=== PATIENT | male | born 1940 | race Caucasian/White ===

== ENCOUNTER 2023-09-01 09:29 | Inpatient (IN) | payer BC, OTHER ==
[2023-09-01 11:21] LABS: BASO % 0.8 % (0-2.0); EOS % 4.6 % (0-4.5); HEMATOCRIT 33.3 % (35.4-49); HEMOGLOBIN 11.6 GM/dL (11.7-16.9); LYMPH % 12.7 % (8-40); MCH 30.1 pg (25.7-33.7); MCHC 34.7 g/dl (32.0-35.9); MEAN CELL VOLUME 86.8 fl (80-96); MEAN PLT VOLUME 7.1 fl (7.5-11.1); MONO % 7.9 % (3.8-10.2); PLATELET COUNT 190 10^3/uL (134-434); RBC 3.84 M/mm3 (4.00-5.60); RDW 16.4 % (11.9-15.9); WHITE BLOOD COUNT 7.6 K/mm3 (4.0-10.0)
[2023-09-01 11:23] LABS: INR 0.97 (0.83-1.09)
[2023-09-01 11:26] LABS: ACTIVATED PTT 24.5 SECONDS (25.2-36.5)
[2023-09-01 11:39] LABS: PH,URINE 5.5 (5.0-8.0); URINE APPEARANCE CLEAR; URINE BILIRUBIN NEGATIVE (NEGATIVE); URINE COLOR YELLOW; URINE GLUCOSE (UA) NEGATIVE (NEGATIVE); URINE KETONE TRACE (NEGATIVE); URINE LEUK ESTERASE NEGATIVE (NEGATIVE); URINE NITRITE NEGATIVE (NEGATIVE); URINE PROTEIN NEGATIVE (NEGATIVE); URINE UROBILINOGEN 0.2 mg/dL (0.2-1.0)
[2023-09-01 11:43] LABS: POTASSIUM 4.3 mmol/L (3.5-5.1)
[2023-09-01 11:45] LABS: CALCIUM 8.7 mg/dL (8.5-10.1); MAGNESIUM 2.1 mg/dL (1.8-2.4)
[2023-09-01 11:46] LABS: BLOOD UREA NITROGEN 25.6 mg/dL (7-18)
[2023-09-01 11:48] LABS: CREATININE 0.9 mg/dL (0.55-1.3)
[2023-09-01 11:50] LABS: BILIRUBIN,TOTAL 0.4 mg/dL (0.2-1)
[2023-09-01] MEDS ORDERED: HALOPERIDOL LACTATE 5 MG/ML ONE (14:21)
[2023-09-01] MEDS: HALOPERIDOL LACTATE 5 MG/ML IM ONE ×2 (14:46→23:06)
[2023-09-01 16:39] VITALS: BMI 22.8
[2023-09-02 08:32] LABS: BASO % 0.5 % (0-2.0); EOS % 3.8 % (0-4.5); HEMOGLOBIN 12.5 GM/dL (11.7-16.9); LYMPH % 12.1 % (8-40); MCH 29.8 pg (25.7-33.7); MCHC 34.7 g/dl (32.0-35.9); MEAN CELL VOLUME 85.9 fl (80-96); MEAN PLT VOLUME 7.1 fl (7.5-11.1); MONO % 7.3 % (3.8-10.2); NEUT % 76.3 % (42.8-82.8); PLATELET COUNT 221 10^3/uL (134-434); RBC 4.19 M/mm3 (4.00-5.60); RDW 15.9 % (11.9-15.9); WHITE BLOOD COUNT 7.2 K/mm3 (4.0-10.0)
[2023-09-02 08:50] LABS: POTASSIUM 3.7 mmol/L (3.5-5.1)
[2023-09-02 08:56] LABS: CALCIUM 8.8 mg/dL (8.5-10.1)
[2023-09-02 08:57] LABS: ALBUMIN 3.2 g/dl (3.4-5.0); BLOOD UREA NITROGEN 20.2 mg/dL (7-18); MAGNESIUM 1.8 mg/dL (1.8-2.4)
[2023-09-02 09:00] LABS: CREATININE 0.8 mg/dL (0.55-1.3); PHOSPHOROUS 3.5 mg/dL (2.5-4.9)
[2023-09-02 09:01] LABS: BILIRUBIN,TOTAL 0.5 mg/dL (0.2-1)
[2023-09-02 09:02] LABS: TOT PROT 6.3 g/dl (6.4-8.2)
[2023-09-02] MEDS: ENOXAPARIN NA (PORCINE) 40 MG/0.4 ML DISP.SYRIN SQ SCH (09:19)
[2023-09-02] MEDS: DIVALPROEX SODIUM 250 MG TABLET E.C. PO SCH ×2 (14:14→17:31)
[2023-09-02] MEDS: risperiDONE 0.25 MG TABLET PO SCH (15:17)
[2023-09-02] MEDS ORDERED: risperiDONE 1 MG TABLET PO SCH (21:00)
[2023-09-02] MEDS: OLANZapine 5 MG TABLET PO SCH (23:02)
[2023-09-03] MEDS: risperiDONE 0.25 MG TABLET PO SCH (08:28)
[2023-09-03] MEDS: DIVALPROEX SODIUM 250 MG TABLET E.C. PO SCH (08:29)
[2023-09-03] MEDS ORDERED: risperiDONE 0.5 MG TABLET PO SCH (09:00)
[2023-09-04 15:59] VITALS: RESP 16
[2023-09-04 22:10] VITALS: BP 102/53; PULSE 74; TEMP 97.6
== END 2023-09-05 12:32 | DRG 884 ==
LOC: JER 09:29 → JERBED 12:26 → J6S 16:08
PROVIDERS: ADMIT Internal Medicine; ATTEND Internal Medicine
DX: F03.911 Unspecified dementia, unspecified severity, with agitation (principal); R94.31 Abnormal electrocardiogram [ECG] [EKG]
CPT/HCPCS: 36415; 70450-TC; 71045-TC-FY; 72125-TC; 73562-TC-LT-FY; 80053; 81003; 82607; 83735; 84100; 84443; 84484; 85025; 85610; 85730; 86780; 87086; 93005; 93010; 93306-TC; 97116-GP; 97161-GP; 99285-25

== ENCOUNTER 2023-09-06 12:52 | Emergency (ER) | payer BC ==
[2023-09-06 13:22] VITALS: RESP 18; BMI 53.4
[2023-09-06] MEDS: LACTATED RINGERS SOLUTION 1000 ML INFUS.BAG IV ONE (14:00)
[2023-09-06 14:04] LABS: VENOUS BASE EXCESS 1.5 mmol/L (-2-2); VENOUS O2 SATURATION 28.6 % (70-80); VENOUS PCO2 45.9 mmHg (38-52); VENOUS PH 7.388 (7.310-7.410)
[2023-09-06 14:06] LABS: BASO % 0.4 % (0-2.0); EOS % 2.8 % (0-4.5); HEMATOCRIT 40.1 % (35.4-49); HEMOGLOBIN 13.8 GM/dL (11.7-16.9); LYMPH % 10.4 % (8-40); MCH 29.9 pg (25.7-33.7); MCHC 34.4 g/dl (32.0-35.9); MEAN CELL VOLUME 86.8 fl (80-96); MEAN PLT VOLUME 7.3 fl (7.5-11.1); MONO % 7.1 % (3.8-10.2); NEUT % 79.3 % (42.8-82.8); PLATELET COUNT 209 10^3/uL (134-434); RBC 4.62 M/mm3 (4.00-5.60); RDW 15.9 % (11.9-15.9); WHITE BLOOD COUNT 10.6 K/mm3 (4.0-10.0)
[2023-09-06 14:10] LABS: INR 1.03 (0.83-1.09); PROTHROMBIN TIME (PATIENT) 11.8 SEC (9.7-13.0)
[2023-09-06 14:26] LABS: POTASSIUM 4.3 mmol/L (3.5-5.1)
[2023-09-06 14:28] LABS: ALBUMIN 3.3 g/dl (3.4-5.0); BLOOD UREA NITROGEN 42.6 mg/dL (7-18); CALCIUM 9.1 mg/dL (8.5-10.1)
[2023-09-06 14:31] LABS: CREATININE 0.9 mg/dL (0.55-1.3)
[2023-09-06 14:33] LABS: BILIRUBIN,TOTAL 0.5 mg/dL (0.2-1)
[2023-09-06 16:02] LABS: EPI CELLS 6 /uL (0-25.1); HYALINE CASTS 0 /uL (0-3.1); PH,URINE 6.5 (5.0-8.0); URINE APPEARANCE CLEAR; URINE BACTERIA 3 /uL (0-1359); URINE BILIRUBIN NEGATIVE (NEGATIVE); URINE COLOR YELLOW; URINE GLUCOSE (UA) NEGATIVE (NEGATIVE); URINE KETONE TRACE (NEGATIVE); URINE LEUK ESTERASE NEGATIVE (NEGATIVE); URINE NITRITE NEGATIVE (NEGATIVE); URINE PROTEIN NEGATIVE (NEGATIVE); URINE RBC 49 /uL (0-23.9); URINE UROBILINOGEN 0.2 mg/dL (0.2-1.0); URINE WBC 5 /uL (0-25.8)
[2023-09-06 16:09] LABS: COCAINE, UR NEGATIVE (NEGATIVE); METHADONE, UR NEGATIVE (NEGATIVE); URINE AMPHETAMINES NEGATIVE (NEGATIVE)
[2023-09-06 16:10] LABS: OPIATES, URI NEGATIVE (NEGATIVE); PHENCYCLIDINE,URINE NEGATIVE (NEGATIVE); URINE BARBITURATES NEGATIVE (NEGATIVE); URINE BENZODIAZEPINES NEGATIVE (NEGATIVE)
[2023-09-06 18:42] VITALS: BP 122/60; PULSE 67; TEMP 98.3
== END 2023-09-06 19:01 ==
LOC: JER 12:52
DX: F03.90 Unspecified dementia, unspecified severity, without behavioral disturbance, psychotic disturbance, mood disturbance, and anxiety (principal); Z20.822 Contact with and (suspected) exposure to COVID-19
CPT/HCPCS: 0241U-QW; 36415; 70450-TC; 71045-TC-FY; 80053; 80307; 81003; 82803; 83605; 83735; 84484; 85025; 85610; 86850; 86900; 86901; 87086; 93005; 93010; 99285-25

== ENCOUNTER 2023-10-18 12:41 | Inpatient (IN) | payer BC, OTHER ==
[2023-10-18] MEDS: SODIUM CHLORIDE 1,000 ML IV SCH (13:50)
[2023-10-18 14:08] LABS: BASO % 0.6 % (0-2.0); EOS % 1.4 % (0-4.5); HEMATOCRIT 37.6 % (35.4-49); HEMOGLOBIN 12.5 GM/dL (11.7-16.9); LYMPH % 15.6 % (8-40); MCH 29.5 pg (25.7-33.7); MCHC 33.3 g/dl (32.0-35.9); MEAN CELL VOLUME 88.8 fl (80-96); MEAN PLT VOLUME 7.3 fl (7.5-11.1); MONO % 7.2 % (3.8-10.2); NEUT % 75.2 % (42.8-82.8); PLATELET COUNT 189 10^3/uL (134-434); RBC 4.23 M/mm3 (4.00-5.60); RDW 15.2 % (11.9-15.9); WHITE BLOOD COUNT 7.1 K/mm3 (4.0-10.0)
[2023-10-18 14:12] LABS: INR 1.01 (0.83-1.09); PROTHROMBIN TIME (PATIENT) 11.4 SEC (9.7-13.0)
[2023-10-18 14:15] LABS: ACTIVATED PTT 27.3 SECONDS (25.2-36.5)
[2023-10-18 14:52] LABS: CHLORIDE 106 mmol/L (98-107); POTASSIUM 4.1 mmol/L (3.5-5.1); SODIUM 143 mmol/L (136-145)
[2023-10-18 14:53] LABS: CALCIUM 8.7 mg/dL (8.5-10.1)
[2023-10-18 14:54] LABS: ALBUMIN 2.4 g/dl (3.4-5.0); ANION GAP 7 mmol/L (4-13); CO2 29 mmol/L (21-32)
[2023-10-18 14:55] LABS: BLOOD UREA NITROGEN 39.3 mg/dL (7-18); GLUCOSE,RANDOM 77 mg/dL (74-106)
[2023-10-18 14:57] LABS: CREATININE 0.8 mg/dL (0.55-1.3); SGOT/AST 61 U/L (15-37); SGPT/ALT 35 U/L (13-61)
[2023-10-18 14:58] LABS: CHOLESTEROL 195 mg/dL (50-200)
[2023-10-18 14:59] LABS: TOT PROT 5.7 g/dl (6.4-8.2)
[2023-10-18 15:00] LABS: BILIRUBIN,TOTAL 0.9 mg/dL (0.2-1); LDL CHOLESTEROL (ONLY SJRH) 119 mg/dL (5-100)
[2023-10-18 15:01] LABS: ALK PHOS 59 U/L (45-117); HDL CHOLESTEROL 54 mg/dL (40-60)
[2023-10-18] MEDS ORDERED: ASPIRIN 81 MG CHEWABLE TABLETS ONE (15:06)
[2023-10-18] MEDS: ASPIRIN 81 MG CHEWABLE TABLETS PO ONE (15:16)
[2023-10-18] MEDS ORDERED: HEPARIN NA (PORCINE) 5,000 UNITS/ML 1ML VIAL ONE (16:53)
[2023-10-18] MEDS ORDERED: HEPARIN INFUSION - 25,000 UNITS/500 ML INFUS.BAG IVPB ONE (16:53)
[2023-10-18] MEDS ORDERED: ATORVASTATIN CA 40 MG TABLET (FP) ONE ×2 (16:54→23:02)
[2023-10-18] MEDS: HEPARIN INFUSION - 25,000 UNITS/500 ML INFUS.BAG IVPB SCH (17:16)
[2023-10-18] MEDS: HEPARIN NA (PORCINE) 5,000 UNITS/ML 1ML VIAL IVPUSH ONE (17:16)
[2023-10-18] MEDS: ATORVASTATIN CA 40 MG TABLET (FP) PO ONE (17:16)
[2023-10-18] MEDS ORDERED: PIPERACILLIN/TAZOB 3.375 GM 3.375 GM in DEXTROSE 5%-WATER - 50 ML IVPB SCH (18:15)
[2023-10-18 18:38] LABS: EPI CELLS >36 /uL (0-25.1); HYALINE CASTS 1 /uL (0-3.1); URINE APPEARANCE CLEAR; URINE BACTERIA 12 /uL (0-1359); URINE BILIRUBIN NEGATIVE (NEGATIVE); URINE COLOR YELLOW; URINE GLUCOSE (UA) NEGATIVE (NEGATIVE); URINE KETONE 1+ (NEGATIVE); URINE LEUK ESTERASE TRACE (NEGATIVE); URINE NITRITE NEGATIVE (NEGATIVE); URINE PROTEIN NEGATIVE (NEGATIVE); URINE RBC 42 /uL (0-23.9); URINE WBC 199 /uL (0-25.8)
[2023-10-18] MEDS ORDERED: PIPERACILLIN/TAZOB 3.375 GM 3.375 GM/50 ML BAG IVPB ONE ×2 (19:07→19:08)
[2023-10-18] MEDS: PIPERACILLIN/TAZOB 3.375 GM 3.375 GM in DEXTROSE 5%-WATER - 50 ML IVPB SCH (20:00)
[2023-10-18] MEDS ORDERED: LOSARTAN POTASSIUM 50 MG TABLET ONE ×2 (21:32→21:33)
[2023-10-18] MEDS: LOSARTAN POTASSIUM 50 MG TABLET PO ONE (21:33)
[2023-10-18] MEDS ORDERED: PATIENT'S OWN MEDICATION (NON-FORMULARY) (Melatonin [Melatonin] 3 MG Tablet) PO SCH (22:00)
[2023-10-18] MEDS ORDERED: MELATONIN 5 MG TABLETS ONE (23:02)
[2023-10-18] MEDS ORDERED: risperiDONE 0.5 MG TABLET ONE (23:02)
[2023-10-18] MEDS ORDERED: DIVALPROEX SODIUM 500 MG TABLET E.C. ONE (23:02)
[2023-10-18] MEDS: MELATONIN 1 MG, MELATONIN 5 MG PO SCH (23:08)
[2023-10-18] MEDS: DIVALPROEX NA *ER* EXTEND REL 500 MG TABLET.SA (FP) PO SCH (23:08)
[2023-10-18] MEDS: ATORVASTATIN CA 40 MG TABLET (FP) PO SCH (23:08)
[2023-10-18] MEDS: risperiDONE 1 MG TABLET PO SCH (23:09)
[2023-10-19] MEDS: MEMANTINE HCL 10 MG TABLET (FP) PO SCH (00:14)
[2023-10-19] MEDS: OLANZapine 5 MG TABLET PO SCH (00:14)
[2023-10-19 01:32] VITALS: BMI 21.3
[2023-10-19 07:46] LABS: BASO % 0.7 % (0-2.0); EOS % 2.3 % (0-4.5); HEMATOCRIT 37.4 % (35.4-49); HEMOGLOBIN 12.5 GM/dL (11.7-16.9); LYMPH % 20.8 % (8-40); MCH 29.8 pg (25.7-33.7); MCHC 33.6 g/dl (32.0-35.9); MEAN CELL VOLUME 88.9 fl (80-96); MEAN PLT VOLUME 7.4 fl (7.5-11.1); MONO % 7.2 % (3.8-10.2); PLATELET COUNT 216 10^3/uL (134-434); WHITE BLOOD COUNT 7.8 K/mm3 (4.0-10.0)
[2023-10-19 08:17] LABS: ALBUMIN 2.6 g/dl (3.4-5.0); BLOOD UREA NITROGEN 36.1 mg/dL (7-18); CALCIUM 8.8 mg/dL (8.5-10.1); MAGNESIUM 2.4 mg/dL (1.8-2.4); POTASSIUM 3.5 mmol/L (3.5-5.1)
[2023-10-19 08:20] LABS: CREATININE 0.9 mg/dL (0.55-1.3); PHOSPHOROUS 2.8 mg/dL (2.5-4.9)
[2023-10-19 08:25] LABS: BILIRUBIN,TOTAL 0.6 mg/dL (0.2-1); TOT PROT 6.1 g/dl (6.4-8.2)
[2023-10-19 08:30] LABS: INR 1.01 (0.83-1.09); PROTHROMBIN TIME (PATIENT) 11.6 SEC (9.7-13.0)
[2023-10-19 08:33] LABS: ACTIVATED PTT 50.1 SECONDS (25.2-36.5)
[2023-10-19] MEDS ORDERED: LOSARTAN POTASSIUM 25 MG TABLET PO SCH (10:00)
[2023-10-19] MEDS: HALOPERIDOL 2 MG TABLET PO SCH (14:06)
[2023-10-19] MEDS: ASPIRIN COATED 81 MG TABLET.EC PO SCH (14:06)
[2023-10-19] MEDS: LOSARTAN POTASSIUM 50 MG TABLET PO SCH (14:06)
[2023-10-20 08:10] LABS: CHLORIDE 111 mmol/L (98-107); POTASSIUM 3.6 mmol/L (3.5-5.1); SODIUM 144 mmol/L (136-145)
[2023-10-20 08:12] LABS: ANION GAP 6 mmol/L (4-13); BLOOD UREA NITROGEN 34.2 mg/dL (7-18); CALCIUM 8.5 mg/dL (8.5-10.1); CO2 27 mmol/L (21-32); GLUCOSE,RANDOM 97 mg/dL (74-106); MAGNESIUM 2.1 mg/dL (1.8-2.4)
[2023-10-20 08:14] LABS: BASO % 0.6 % (0-2.0); HEMATOCRIT 33.4 % (35.4-49); HEMOGLOBIN 11.4 GM/dL (11.7-16.9); INR 1.07 (0.83-1.09); LYMPH % 21.7 % (8-40); MCH 30.3 pg (25.7-33.7); MCHC 34.3 g/dl (32.0-35.9); MEAN CELL VOLUME 88.3 fl (80-96); MEAN PLT VOLUME 7.5 fl (7.5-11.1); MONO % 5.3 % (3.8-10.2); NEUT % 68.4 % (42.8-82.8); PLATELET COUNT 225 10^3/uL (134-434); PROTHROMBIN TIME (PATIENT) 12.1 SEC (9.7-13.0); RBC 3.78 M/mm3 (4.00-5.60); RDW 14.5 % (11.9-15.9); WHITE BLOOD COUNT 7.9 K/mm3 (4.0-10.0)
[2023-10-20 08:16] LABS: CREATININE 0.7 mg/dL (0.55-1.3)
[2023-10-20 08:17] LABS: ACTIVATED PTT 60.1 SECONDS (25.2-36.5)
[2023-10-21 07:55] LABS: BASO % 0.7 % (0-2.0); EOS % 4.2 % (0-4.5); HEMATOCRIT 34.5 % (35.4-49); HEMOGLOBIN 11.8 GM/dL (11.7-16.9); LYMPH % 24.7 % (8-40); MCH 29.9 pg (25.7-33.7); MCHC 34.3 g/dl (32.0-35.9); MEAN CELL VOLUME 87.3 fl (80-96); MEAN PLT VOLUME 7.9 fl (7.5-11.1); MONO % 5.9 % (3.8-10.2); NEUT % 64.5 % (42.8-82.8); PLATELET COUNT 256 10^3/uL (134-434); RBC 3.95 M/mm3 (4.00-5.60); RDW 14.6 % (11.9-15.9); WHITE BLOOD COUNT 7.8 K/mm3 (4.0-10.0)
[2023-10-21 07:58] LABS: INR 1.04 (0.83-1.09); PROTHROMBIN TIME (PATIENT) 11.9 SEC (9.7-13.0)
[2023-10-21 08:00] LABS: BLOOD UREA NITROGEN 29.5 mg/dL (7-18); CALCIUM 8.5 mg/dL (8.5-10.1)
[2023-10-21 08:02] LABS: ACTIVATED PTT 59.1 SECONDS (25.2-36.5)
[2023-10-21 08:04] LABS: CREATININE 0.8 mg/dL (0.55-1.3)
[2023-10-22 08:50] LABS: HEMATOCRIT 36.5 % (35.4-49); HEMOGLOBIN 12.7 GM/dL (11.7-16.9); MCH 30.6 pg (25.7-33.7); MCHC 34.9 g/dl (32.0-35.9); MEAN CELL VOLUME 87.5 fl (80-96); MEAN PLT VOLUME 7.8 fl (7.5-11.1); PLATELET COUNT 238 10^3/uL (134-434); RBC 4.17 M/mm3 (4.00-5.60); RDW 14.9 % (11.9-15.9); WHITE BLOOD COUNT 6.7 K/mm3 (4.0-10.0)
[2023-10-22 09:04] LABS: BLOOD UREA NITROGEN 26.1 mg/dL (7-18); CALCIUM 8.6 mg/dL (8.5-10.1); POTASSIUM 4.3 mmol/L (3.5-5.1)
[2023-10-22 09:09] LABS: CREATININE 0.7 mg/dL (0.55-1.3)
[2023-10-22] MEDS: ENOXAPARIN NA (PORCINE) 40 MG/0.4 ML DISP.SYRIN SQ SCH (09:32)
[2023-10-22 18:46] VITALS: TEMP 98.1
[2023-10-22 22:51] VITALS: BP 116/80; PULSE 62; RESP 20
== END 2023-10-22 22:55 | DRG 281 ==
LOC: JER 12:41 → JERBED 16:31 → J4W 10-19 00:52
PROVIDERS: ADMIT Internal Medicine; ATTEND Internal Medicine
DX: I21.4 Non-ST elevation (NSTEMI) myocardial infarction (principal); F03.918 Unspecified dementia, unspecified severity, with other behavioral disturbance; I69.391 Dysphagia following cerebral infarction; R13.10 Dysphagia, unspecified
CPT/HCPCS: 36415; 70450-TC; 70496-TC; 70498-TC; 71045-TC-FY; 80048; 80053; 80061; 80164; 81003; 82550; 82553; 82962; 83036; 83735; 84100; 84484; 85025; 85027; 85610; 85730; 86850; 86900; 86901; 87086; 93005; 93010; 93306-TC; 97116-GP; 97162-GP; 99285-25; J1644; Q9967

== ENCOUNTER 2023-10-24 19:01 | Inpatient (IN) | payer BC, OTHER ==
[2023-10-24] MEDS: SODIUM CHLORIDE 0.9% 500 ML INFUS.BAG IV ONE (19:45)
[2023-10-24] MEDS ORDERED: ASPIRIN 81 MG CHEWABLE TABLETS ONE (20:23)
[2023-10-24 20:56] LABS: VENOUS BASE EXCESS -2.1 mmol/L (-2-2); VENOUS PCO2 50.1 mmHg (38-52)
[2023-10-24] MEDS: ASPIRIN 81 MG CHEWABLE TABLETS PO ONE (21:00)
[2023-10-24 21:03] LABS: BASO % 0.4 % (0-2.0); EOS % 2.9 % (0-4.5); HEMATOCRIT 38.2 % (35.4-49); HEMOGLOBIN 13.1 GM/dL (11.7-16.9); LYMPH % 16.1 % (8-40); MCH 29.9 pg (25.7-33.7); MCHC 34.2 g/dl (32.0-35.9); MEAN CELL VOLUME 87.6 fl (80-96); MEAN PLT VOLUME 7.5 fl (7.5-11.1); MONO % 5.1 % (3.8-10.2); NEUT % 75.5 % (42.8-82.8); PLATELET COUNT 279 10^3/uL (134-434); RBC 4.36 M/mm3 (4.00-5.60); RDW 15.3 % (11.9-15.9); WHITE BLOOD COUNT 7.7 K/mm3 (4.0-10.0)
[2023-10-24 21:17] LABS: POTASSIUM 4.7 mmol/L (3.5-5.1)
[2023-10-24 21:19] LABS: CALCIUM 8.4 mg/dL (8.5-10.1)
[2023-10-24 21:20] LABS: ALBUMIN 2.5 g/dl (3.4-5.0); BLOOD UREA NITROGEN 28.2 mg/dL (7-18)
[2023-10-24 21:25] LABS: BILIRUBIN,TOTAL 0.5 mg/dL (0.2-1); TOT PROT 5.8 g/dl (6.4-8.2)
[2023-10-24 21:28] LABS: N-TERMINAL BNP 3052.2 pg/ml (5-450)
[2023-10-24 21:45] LABS: INR 1.09 (0.83-1.09); PROTHROMBIN TIME (PATIENT) 12.3 SEC (9.7-13.0)
[2023-10-24 21:47] LABS: ACTIVATED PTT 27.4 SECONDS (25.2-36.5)
[2023-10-24 22:19] LABS: LACTIC ACID 3.6 mmol/L (0.4-2.0)
[2023-10-24 23:05] LABS: EPI CELLS 12 /uL (0-25.1); HYALINE CASTS 1 /uL (0-3.1); PH,URINE 6.5 (5.0-8.0); URINE APPEARANCE CLEAR; URINE BACTERIA 5 /uL (0-1359); URINE BILIRUBIN NEGATIVE (NEGATIVE); URINE COLOR YELLOW; URINE GLUCOSE (UA) NEGATIVE (NEGATIVE); URINE KETONE NEGATIVE (NEGATIVE); URINE LEUK ESTERASE NEGATIVE (NEGATIVE); URINE NITRITE NEGATIVE (NEGATIVE); URINE PROTEIN NEGATIVE (NEGATIVE); URINE RBC 82 /uL (0-23.9); URINE UROBILINOGEN 0.2 mg/dL (0.2-1.0); URINE WBC 18 /uL (0-25.8)
[2023-10-24 23:26] LABS: URINE CRYSTALS PRESENT /hpf
[2023-10-25] MEDS: SODIUM CHLORIDE 0.9% 500 ML INFUS.BAG IV ONE (00:14)
[2023-10-25] MEDS ORDERED: MIDODRINE HCL 5 MG TABLET ONE (00:58)
[2023-10-25] MEDS: MIDODRINE HCL 2.5 MG TABLET PO ONE (01:04)
[2023-10-25 03:03] LABS: LACTIC ACID 2.1 mmol/L (0.4-2.0)
[2023-10-25 05:58] LABS: BASO % 0.4 % (0-2.0); EOS % 3.3 % (0-4.5); HEMATOCRIT 30.8 % (35.4-49); HEMOGLOBIN 10.6 GM/dL (11.7-16.9); LYMPH % 15.2 % (8-40); MCH 30.2 pg (25.7-33.7); MCHC 34.5 g/dl (32.0-35.9); MEAN CELL VOLUME 87.8 fl (80-96); MEAN PLT VOLUME 7.5 fl (7.5-11.1); NEUT % 76.1 % (42.8-82.8); PLATELET COUNT 218 10^3/uL (134-434); RBC 3.51 M/mm3 (4.00-5.60); RDW 15.2 % (11.9-15.9); WHITE BLOOD COUNT 8.8 K/mm3 (4.0-10.0)
[2023-10-25 06:20] LABS: CALCIUM 7.8 mg/dL (8.5-10.1)
[2023-10-25 06:21] VITALS: RESP 18
[2023-10-25 06:21] LABS: ALBUMIN 2.1 g/dl (3.4-5.0); BLOOD UREA NITROGEN 24.7 mg/dL (7-18); MAGNESIUM 1.8 mg/dL (1.8-2.4)
[2023-10-25 06:24] LABS: CREATININE 0.8 mg/dL (0.55-1.3); PHOSPHOROUS 2.6 mg/dL (2.5-4.9)
[2023-10-25 06:26] LABS: BILIRUBIN,TOTAL 0.4 mg/dL (0.2-1); TOT PROT 4.7 g/dl (6.4-8.2)
[2023-10-25 06:53] VITALS: BMI 21.9
[2023-10-25] MEDS ORDERED: MIDODRINE HCL 5 MG TABLET PO PRN ×2 (07:03→09:40)
[2023-10-25] MEDS ORDERED: MIDODRINE HCL 5 MG TABLET PO SCH ×2 (10:00)
[2023-10-25] MEDS ORDERED: MAGNESIUM HYDROX 2400MG/30ML ORAL SUSPENSION 30 ML CUP PO PRN (10:49)
[2023-10-25] MEDS: risperiDONE 1 MG TABLET PO SCH (11:48)
[2023-10-25] MEDS: PANTOPRAZOLE 40 MG TABLET PO SCH (11:48)
[2023-10-25] MEDS: ACETAMINOPHEN 325 MG TABLET (FP) PO SCH (11:48)
[2023-10-25] MEDS: DIVALPROEX NA *ER* EXTEND REL 250 MG TABLET.SA PO SCH (11:50)
[2023-10-25] MEDS: CLOPIDOGREL BISULFATE 75 MG TABLET (FP) PO SCH (11:50)
[2023-10-25] MEDS: OLANZapine 5 MG TABLET PO SCH (11:50)
[2023-10-25] MEDS: MEMANTINE HCL 10 MG TABLET (FP) PO SCH (11:51)
[2023-10-25] MEDS: ASPIRIN COATED 81 MG TABLET.EC PO SCH (12:03)
[2023-10-25] MEDS ORDERED: HALOPERIDOL 2 MG TABLET PO SCH (12:15)
[2023-10-25] MEDS: HALOPERIDOL 1 MG TABLET PO SCH (12:58)
[2023-10-25 18:56] VITALS: BP 100/61; PULSE 55; TEMP 97.4
[2023-10-25] MEDS ORDERED: MELATONIN 5 MG TABLETS PO SCH (22:00)
[2023-10-25] MEDS ORDERED: ATORVASTATIN CA 40 MG TABLET (FP) PO SCH (22:00)
== END 2023-10-25 21:05 | DRG 281 ==
LOC: JER 19:01 → JERBED 10-25 03:26 → J4W 10-25 06:17
PROVIDERS: ADMIT Internal Medicine; ATTEND Internal Medicine
DX: I95.2 Hypotension due to drugs (principal); I50.22 Chronic systolic (congestive) heart failure; I21.4 Non-ST elevation (NSTEMI) myocardial infarction; R00.1 Bradycardia, unspecified; I25.10 Atherosclerotic heart disease of native coronary artery without angina pectoris; F03.90 Unspecified dementia, unspecified severity, without behavioral disturbance, psychotic disturbance, mood disturbance, and anxiety; L89.152 Pressure ulcer of sacral region, stage 2; I35.0 Nonrheumatic aortic (valve) stenosis; I69.991 Dysphagia following unspecified cerebrovascular disease; R13.10 Dysphagia, unspecified; T46.5X5A Adverse effect of other antihypertensive drugs, initial encounter
CPT/HCPCS: 0241U-QW; 36415; 71045-TC-FY; 80053; 81003; 82803; 82962; 83605; 83735; 83880; 84100; 84484; 85025; 85610; 85730; 86850; 86900; 86901; 87040; 87086; 93005; 93010; 99285-25

== ENCOUNTER 2024-04-06 13:37 | Inpatient (IN) | payer OTHER ==
[2024-04-06] MEDS ORDERED: ACETAMINOPHEN INJECTION 100 ML ONE (14:10)
[2024-04-06] MEDS: ACETAMINOPHEN 1000 MG/100 ML BAG IVPB ONE (14:23)
[2024-04-06] MEDS: SODIUM CHLORIDE 1,000 ML IV STA ×3 (14:23→16:50)
[2024-04-06] MEDS ORDERED: PIPERACILLIN/TAZOB 3.375 GM 3.375 GM/50 ML BAG IVPB ONE (14:31)
[2024-04-06] MEDS ORDERED: VANCOMYCIN 1 GM PREMIX (F) 1 GM/200 ML BAG ONE (14:31)
[2024-04-06] MEDS: PIPERACILLIN/TAZOB 3.375 GM 3.375 GM in DEXTROSE 5%-WATER - 50 ML IVPB ONE (14:40)
[2024-04-06 14:41] LABS: HEMATOCRIT 28.6 % (35.4-49); HEMOGLOBIN 9.3 GM/dL (11.7-16.9); MCH 29.2 pg (25.7-33.7); MCHC 32.4 g/dl (32.0-35.9); MEAN CELL VOLUME 90.4 fl (80-96); PLATELET COUNT 423 10^3/uL (134-434); RBC 3.17 M/mm3 (4.00-5.60); RDW 16.5 % (11.9-15.9); WHITE BLOOD COUNT 22.5 K/mm3 (4.0-10.0)
[2024-04-06 14:42] LABS: VENOUS BASE EXCESS -7.5 mmol/L (-2-2); VENOUS O2 SATURATION 91.4 % (70-80); VENOUS PCO2 26.8 mmHg (38-52); VENOUS PH 7.397 (7.310-7.410)
[2024-04-06 14:47] LABS: INR 1.18 (0.83-1.09)
[2024-04-06 14:56] LABS: CHLORIDE 111 mmol/L (98-107); SODIUM 148 mmol/L (136-145)
[2024-04-06 14:58] LABS: CALCIUM 8.7 mg/dL (8.5-10.1)
[2024-04-06 14:59] LABS: ALBUMIN 1.9 g/dl (3.4-5.0); CO2 20 mmol/L (21-32); GLUCOSE,RANDOM 151 mg/dL (74-106)
[2024-04-06 15:02] LABS: CREATININE 6.7 mg/dL (0.55-1.3); SGPT/ALT 46 U/L (13-61)
[2024-04-06 15:03] LABS: BILIRUBIN,TOTAL 0.9 mg/dL (0.2-1)
[2024-04-06 15:04] LABS: SGOT/AST 91 U/L (15-37); TOT PROT 6.2 g/dl (6.4-8.2)
[2024-04-06] MEDS: VANCOMYCIN 1,000 MG in DEXTROSE 5%-WATER - 250 ML IVPB ONE (15:05)
[2024-04-06 15:06] LABS: ANION GAP 17 mmol/L (4-13); POTASSIUM 6.6 mmol/L (3.5-5.1)
[2024-04-06 15:08] LABS: ALK PHOS 102 U/L (45-117)
[2024-04-06 15:09] LABS: BLOOD UREA NITROGEN 214.8 mg/dL (7-18)
[2024-04-06 15:13] LABS: LACTIC ACID 3.1 mmol/L (0.4-2.0)
[2024-04-06] MEDS ORDERED: CALCIUM GLUC IN NACL, ISO-OSM 1 GM/50 ML BAG IVPB ONE (15:34)
[2024-04-06] MEDS: CALCIUM GLUCONATE 10% - 1,000 MG/10 ML VIAL IVPB ONE (15:40)
[2024-04-06] MEDS ORDERED: DEXTROSE 50%-WATER 25 GM/50 ML DISP.SYRIN ONE (16:44)
[2024-04-06] MEDS ORDERED: ALBUTEROL SO4 0.083% IH SOL 2.5 MG/3 ML VIAL.NEB. NEB ONE (16:44)
[2024-04-06] MEDS: INSULIN REGULAR HUMAN 100 UNITS/ML *VIAL IVPUSH ONE (16:49)
[2024-04-06] MEDS: ALBUTEROL SO4 0.083% IH SOL 2.5 MG/3 ML VIAL.NEB. NEB ONE (16:49)
[2024-04-06] MEDS: DEXTROSE 50%-WATER 25 GM/50 ML DISP.SYRIN IVPUSH ONE (16:50)
[2024-04-06] MEDS: SODIUM CHLORIDE 0.45% 1,000 ML IV SCH ×3 (17:15→20:53)
[2024-04-06 17:58] LABS: CHLORIDE 114 mmol/L (98-107); POTASSIUM 5.8 mmol/L (3.5-5.1); SODIUM 147 mmol/L (136-145)
[2024-04-06 17:59] LABS: CALCIUM 7.9 mg/dL (8.5-10.1)
[2024-04-06 18:00] LABS: ANION GAP 14 mmol/L (4-13); CO2 19 mmol/L (21-32); GLUCOSE,RANDOM 189 mg/dL (74-106)
[2024-04-06 18:03] LABS: CREATININE 6.1 mg/dL (0.55-1.3); SGOT/AST 82 U/L (15-37); SGPT/ALT 41 U/L (13-61)
[2024-04-06 18:05] LABS: BILIRUBIN,TOTAL 0.7 mg/dL (0.2-1); TOT PROT 5.1 g/dl (6.4-8.2)
[2024-04-06 18:06] LABS: ALK PHOS 82 U/L (45-117)
[2024-04-06] MEDS: SODIUM CHLORIDE 500 ML IV STA (18:11)
[2024-04-06 18:13] LABS: ALBUMIN 1.5 g/dl (3.4-5.0); LACTIC ACID 2.9 mmol/L (0.4-2.0)
[2024-04-06 18:39] LABS: URINE APPEARANCE TURBID; URINE COLOR DK YELLOW
[2024-04-06 18:40] LABS: URINE BILIRUBIN MODERATE (NEGATIVE); URINE GLUCOSE (UA) NEGATIVE (NEGATIVE); URINE KETONE NEGATIVE (NEGATIVE); URINE LEUK ESTERASE LARGE (NEGATIVE); URINE NITRITE POSITIVE (NEGATIVE); URINE PROTEIN 100 (NEGATIVE); URINE RBC 136.3 /uL (0-23.9)
[2024-04-06 18:41] LABS: EPI CELLS 49.8 /uL (0-25.1); HYALINE CASTS 646.26 /uL (0-3.1); URINE BACTERIA 7058.5 /uL (0-1359); URINE WBC 11525.1 /uL (0-25.8)
[2024-04-06] MEDS ORDERED: PIPERACILLIN/TAZOB 2.25 GM 2.25 GM in DEXTROSE 5%-WATER - 50 ML IVPB SCH (21:00)
[2024-04-06] MEDS ORDERED: HEPARIN NA (PORCINE) 5,000 UNITS/ML 1ML VIAL ONE (21:16)
[2024-04-06] MEDS ORDERED: PIPERACILLIN/TAZOB 2.25 GM 2.25 GM/50 ML BAG IVPB ONE (21:16)
[2024-04-06 21:17] LABS: HEMATOCRIT 25.6 % (35.4-49); HEMOGLOBIN 8.2 GM/dL (11.7-16.9); MCH 28.8 pg (25.7-33.7); MCHC 31.9 g/dl (32.0-35.9); MEAN CELL VOLUME 90.2 fl (80-96); MEAN PLT VOLUME 8.7 fl (7.5-11.1); PLATELET COUNT 314 10^3/uL (134-434); RBC 2.84 M/mm3 (4.00-5.60); RDW 16.8 % (11.9-15.9); WHITE BLOOD COUNT 17.5 K/mm3 (4.0-10.0)
[2024-04-06] MEDS: HEPARIN NA (PORCINE) 5,000 UNITS/ML 1ML VIAL SQ SCH (21:25)
[2024-04-06] MEDS: PIPERACILLIN/TAZOB 2.25 GM 2.25 GM/50 ML BAG IVPB SCH (21:25)
[2024-04-06 21:38] LABS: CHLORIDE 115 mmol/L (98-107); POTASSIUM 5.4 mmol/L (3.5-5.1); SODIUM 146 mmol/L (136-145)
[2024-04-06 21:40] LABS: ALBUMIN 1.6 g/dl (3.4-5.0); CALCIUM 7.6 mg/dL (8.5-10.1)
[2024-04-06 21:41] LABS: ANION GAP 12 mmol/L (4-13); CO2 19 mmol/L (21-32); GLUCOSE,RANDOM 127 mg/dL (74-106); MAGNESIUM 2.3 mg/dL (1.8-2.4)
[2024-04-06 21:44] LABS: CREATININE 5.8 mg/dL (0.55-1.3); PHOSPHOROUS 6.9 mg/dL (2.5-4.9); SGOT/AST 98 U/L (15-37); SGPT/ALT 53 U/L (13-61)
[2024-04-06 21:45] LABS: BILIRUBIN,TOTAL 0.7 mg/dL (0.2-1); TOT PROT 5.3 g/dl (6.4-8.2)
[2024-04-06 21:46] LABS: ALK PHOS 87 U/L (45-117)
[2024-04-06] MEDS ORDERED: ALBUTEROL SO4 2.5/IPRATROPIUM 0.5 INH SOL 3 ML VIAL.NEB. NEB PRN (21:56)
[2024-04-06] MEDS ORDERED: MIDODRINE HCL 5 MG TABLET PO PRN (21:59)
[2024-04-06 22:17] LABS: RETICULOCYTES 1.11 % (0.5-1.5)
[2024-04-06 22:21] LABS: ANISOCYTOSIS 1+; MACROCYTOSIS 1+
[2024-04-06 22:36] LABS: BLOOD UREA NITROGEN > 150.0 mg/dL (7-18)
[2024-04-06 22:38] LABS: IRON SERUM 17 ug/dL (50-175); TOTAL IRON BINDING CAPACITY 145 ug/dL (250-450)
[2024-04-06] MEDS ORDERED: VALPROATE SODIUM 500 MG/5 ML VIAL IVPB SCH (23:15)
[2024-04-07] MEDS: MEMANTINE HCL 10 MG TABLET (FP) PO SCH (00:50)
[2024-04-07] MEDS: OLANZapine 5 MG TABLET PO SCH (00:50)
[2024-04-07] MEDS: ATORVASTATIN CA 40 MG TABLET (FP) PO SCH (00:50)
[2024-04-07] MEDS: PATIENT'S OWN MEDICATION (NON-FORMULARY) (Melatonin [Melatonin] 3 MG Tablet) PO SCH (00:51)
[2024-04-07] MEDS: FUROSEMIDE 40 MG/4 ML INJECTABLE VIAL IVPUSH ONE ×2 (00:51→10:59)
[2024-04-07] MEDS: DIVALPROEX NA *ER* EXTEND REL 500 MG TABLET.SA (FP) PO SCH (00:51)
[2024-04-07] MEDS: PIPERACILLIN/TAZOB 2.25 GM 2.25 GM/50 ML BAG IVPB SCH ×2 (02:25→21:01)
[2024-04-07] MEDS: VALPROATE SODIUM INJECTION 250 MG in SODIUM CHLORIDE 100 ML IVPB SCH ×2 (02:32→20:01)
[2024-04-07] MEDS: DEXTROSE 5%-WATER - 1,000 ML IV SCH ×3 (04:11→17:06)
[2024-04-07 08:47] LABS: HEMATOCRIT 27.3 % (35.4-49); HEMOGLOBIN 8.7 GM/dL (11.7-16.9); MCHC 31.9 g/dl (32.0-35.9); MEAN CELL VOLUME 91.1 fl (80-96); MEAN PLT VOLUME 9.1 fl (7.5-11.1); PLATELET COUNT 364 10^3/uL (134-434); RDW 17.2 % (11.9-15.9); WHITE BLOOD COUNT 15.2 K/mm3 (4.0-10.0)
[2024-04-07 09:00] LABS: CHLORIDE 114 mmol/L (98-107); POTASSIUM 5.6 mmol/L (3.5-5.1); SODIUM 145 mmol/L (136-145)
[2024-04-07 09:04] LABS: MAGNESIUM 2.4 mg/dL (1.8-2.4)
[2024-04-07 09:11] LABS: ALBUMIN 1.6 g/dl (3.4-5.0); ANION GAP 11 mmol/L (4-13); CO2 20 mmol/L (21-32); GLUCOSE,RANDOM 130 mg/dL (74-106)
[2024-04-07 09:14] LABS: CREATININE 5.5 mg/dL (0.55-1.3); PHOSPHOROUS 7.5 mg/dL (2.5-4.9); SGOT/AST 94 U/L (15-37); SGPT/ALT 54 U/L (13-61)
[2024-04-07 09:15] LABS: BILIRUBIN,TOTAL 0.9 mg/dL (0.2-1)
[2024-04-07 09:16] LABS: TOT PROT 5.5 g/dl (6.4-8.2)
[2024-04-07 09:17] LABS: ALK PHOS 88 U/L (45-117)
[2024-04-07] MEDS ORDERED: CLOPIDOGREL BISULFATE 75 MG TABLET (FP) PO SCH (10:00)
[2024-04-07] MEDS ORDERED: ASPIRIN COATED 81 MG TABLET.EC PO SCH (10:00)
[2024-04-07 10:15] LABS: BLOOD UREA NITROGEN 197.8 mg/dL (7-18)
[2024-04-07 11:17] LABS: ANISOCYTOSIS 0; MACROCYTOSIS 0
[2024-04-07] MEDS ORDERED: DEXTROSE 50%-WATER - 25 GM/50 ML VIAL IVPUSH ONE (11:30)
[2024-04-07] MEDS ORDERED: SODIUM ZIRCONIUM CYCLOSILICATE (LOKELMA) 5 GM PACKET PO SCH (12:00)
[2024-04-07] MEDS ORDERED: ALBUTEROL SO4 2.5/IPRATROPIUM 0.5 INH SOL 3 ML VIAL.NEB. NEB PRN ×2 (12:23→16:49)
[2024-04-07 13:06] LABS: CHLORIDE 114 mmol/L (98-107); POTASSIUM 5.5 mmol/L (3.5-5.1); SODIUM 145 mmol/L (136-145)
[2024-04-07 13:07] LABS: CALCIUM 8.2 mg/dL (8.5-10.1)
[2024-04-07 13:08] LABS: ALBUMIN 1.7 g/dl (3.4-5.0); ANION GAP 11 mmol/L (4-13); CO2 21 mmol/L (21-32); GLUCOSE,RANDOM 121 mg/dL (74-106)
[2024-04-07 13:11] LABS: CREATININE 5.4 mg/dL (0.55-1.3); SGOT/AST 86 U/L (15-37); SGPT/ALT 52 U/L (13-61)
[2024-04-07 13:12] LABS: BILIRUBIN,TOTAL 0.8 mg/dL (0.2-1); TOT PROT 5.8 g/dl (6.4-8.2)
[2024-04-07 13:14] LABS: ALK PHOS 91 U/L (45-117)
[2024-04-07] MEDS: DEXTROSE 50%-WATER 25 GM/50 ML DISP.SYRIN IVPUSH ONE (13:27)
[2024-04-07] MEDS: INSULIN REGULAR HUMAN 100 UNITS/ML *VIAL IVPUSH ONE (13:27)
[2024-04-07 13:28] LABS: BLOOD UREA NITROGEN 198.3 mg/dL (7-18)
[2024-04-07] MEDS ORDERED: DEXTROSE 5%-WATER - 1,000 ML IV SCH (15:18)
[2024-04-07] MEDS: LACTATED RINGERS SOLUTION 1000 ML INFUS.BAG IV ONE (16:21)
[2024-04-07 16:44] LABS: ARTERIAL BLD GAS O2 SATURATION 96.3 % (95-98); ARTERIAL BLOOD GAS BASE EXCESS -6.7 mmol/L (-2-2); ARTERIAL BLOOD GAS pH 7.372 (7.350-7.450)
[2024-04-07 16:49] LABS: ALLENS TEST POSITIVE
[2024-04-07] MEDS: AMIODARONE HCL 150 MG/3 ML VIAL IVPUSH ONE (16:57)
[2024-04-07] MEDS: ACETAMINOPHEN 1000 MG/100 ML BAG IVPB PRN (17:01)
[2024-04-07 17:16] LABS: CHLORIDE 116 mmol/L (98-107); SODIUM 148 mmol/L (136-145)
[2024-04-07 17:17] LABS: CALCIUM 8.1 mg/dL (8.5-10.1)
[2024-04-07 17:18] LABS: ANION GAP 13 mmol/L (4-13); CO2 20 mmol/L (21-32); GLUCOSE,RANDOM 99 mg/dL (74-106)
[2024-04-07 17:21] LABS: CREATININE 5.2 mg/dL (0.55-1.3)
[2024-04-07 17:25] LABS: BLOOD UREA NITROGEN 196.5 mg/dL (7-18)
[2024-04-07 17:35] LABS: LACTIC ACID 2.3 mmol/L (0.4-2.0)
[2024-04-07] MEDS: MUPIROCIN 2% TOPICAL OINTMENT FOR DECOLONIZATION NS SCH (21:31)
[2024-04-07] MEDS: CHLORHEXIDINE GLUCONATE 4% CLEANSER FOR DECOLONIZATION TP SCH (21:31)
[2024-04-07] MEDS ORDERED: HEPARIN NA (PORCINE) 5,000 UNITS/ML 1ML VIAL SQ SCH (22:00)
[2024-04-07] MEDS ORDERED: MELATONIN 5 MG, MELATONIN 1 MG PO SCH (22:00)
[2024-04-08] MEDS: AMIODARONE IN DEXTROSE,ISO-OSM 150 MG/100 ML BAG IVPB ONE (05:26)
[2024-04-08] MEDS: AMIODARONE IN DEXTROSE,ISO-OSM 360 MG/200 ML BAG IV SCH (05:28)
[2024-04-08 07:41] LABS: INR 1.28 (0.83-1.09)
[2024-04-08 07:44] LABS: ACTIVATED PTT 27.7 SECONDS (25.2-36.5)
[2024-04-08 07:49] LABS: HEMATOCRIT 25.4 % (35.4-49); MCH 29.2 pg (25.7-33.7); MCHC 31.6 g/dl (32.0-35.9); MEAN CELL VOLUME 92.6 fl (80-96); MEAN PLT VOLUME 9.1 fl (7.5-11.1); PLATELET COUNT 387 10^3/uL (134-434); RBC 2.74 M/mm3 (4.00-5.60); RDW 16.6 % (11.9-15.9); WHITE BLOOD COUNT 18.1 K/mm3 (4.0-10.0)
[2024-04-08 08:07] LABS: LACTIC ACID 2.4 mmol/L (0.4-2.0)
[2024-04-08 08:10] LABS: CHLORIDE 112 mmol/L (98-107); POTASSIUM 5.4 mmol/L (3.5-5.1); SODIUM 144 mmol/L (136-145)
[2024-04-08 08:13] LABS: CALCIUM 7.9 mg/dL (8.5-10.1)
[2024-04-08 08:14] LABS: ALBUMIN 1.6 g/dl (3.4-5.0); ANION GAP 13 mmol/L (4-13); CO2 20 mmol/L (21-32); GLUCOSE,RANDOM 146 mg/dL (74-106); MAGNESIUM 2.4 mg/dL (1.8-2.4)
[2024-04-08 08:17] LABS: CREATININE 5.2 mg/dL (0.55-1.3); SGOT/AST 60 U/L (15-37); SGPT/ALT 41 U/L (13-61)
[2024-04-08 08:19] LABS: TOT PROT 5.6 g/dl (6.4-8.2)
[2024-04-08 08:20] LABS: ALK PHOS 78 U/L (45-117)
[2024-04-08 08:42] LABS: PHOSPHOROUS 8.4 mg/dL (2.5-4.9)
[2024-04-08 09:10] LABS: BLOOD UREA NITROGEN 193.8 mg/dL (7-18)
[2024-04-08] MEDS ORDERED: PROPOFOL 1,000,000 MCG/100 ML VIAL ONE (09:14)
[2024-04-08 09:18] LABS: ANISOCYTOSIS 0; MACROCYTOSIS 0
[2024-04-08] MEDS: ROCURONIUM BROMIDE 50 MG/5 ML VIAL IVPUSH ONE (10:11)
[2024-04-08] MEDS: PROPOFOL 1,000,000 MCG/100 ML VIAL IVPB SCH (10:12)
[2024-04-08] MEDS: PANTOPRAZOLE SODIUM 40 MG VIAL IVPUSH SCH (10:16)
[2024-04-08] MEDS ORDERED: SODIUM CHLORIDE 250 ML IV PRN (10:59)
[2024-04-08 11:18] LABS: ARTERIAL BLD GAS O2 SATURATION 97.5 % (95-98); ARTERIAL BLOOD GAS BASE EXCESS -7.2 mmol/L (-2-2); ARTERIAL BLOOD GAS PO2 100.4 mmHg (80-100)
[2024-04-08 11:20] LABS: ALLENS TEST POSITIVE
[2024-04-08 11:21] LABS: VENT MODE A/C; VENT RATE 12
[2024-04-08] MEDS ORDERED: SODIUM ZIRCONIUM CYCLOSILICATE (LOKELMA) 5 GM PACKET PO SCH (12:00)
[2024-04-08] MEDS: PROPOFOL 200 MG/20 ML VIAL IVPUSH ONE (12:51)
[2024-04-08] MEDS: PHENYLEPHRINE NS PREMIX 50,000 MCG/500 ML BAG CVP SCH (15:22)
[2024-04-08] MEDS: ACETYLCYSTEINE 20% 200MG/ML 4 ML VIAL *FOR ORAL / INH USE ONLY NEB SCH (16:10)
[2024-04-08] MEDS: ALBUTEROL SO4 0.083% IH SOL 2.5 MG/3 ML VIAL.NEB. NEB SCH (16:10)
[2024-04-08] MEDS: NOREPINEPHRINE 0.9 % NACL 8 MG/250 ML BAG IVPB SCH (17:04)
[2024-04-08] MEDS: ALBUMIN HUMAN 25% 100 ML VIAL IV SCH (21:17)
[2024-04-08] MEDS: PIPERACILLIN/TAZOB 2.25 GM 2.25 GM/50 ML BAG IVPB SCH (21:36)
[2024-04-09 06:55] LABS: HEMATOCRIT 20.9 % (35.4-49); MCH 29.5 pg (25.7-33.7); MCHC 32.1 g/dl (32.0-35.9); MEAN CELL VOLUME 91.9 fl (80-96); MEAN PLT VOLUME 8.8 fl (7.5-11.1); PLATELET COUNT 338 10^3/uL (134-434); RBC 2.28 M/mm3 (4.00-5.60); RDW 16.7 % (11.9-15.9); WHITE BLOOD COUNT 15.6 K/mm3 (4.0-10.0)
[2024-04-09 07:10] LABS: CHLORIDE 107 mmol/L (98-107); POTASSIUM 4.1 mmol/L (3.5-5.1); SODIUM 143 mmol/L (136-145)
[2024-04-09 07:11] LABS: HEMOGLOBIN 6.7 GM/dL (11.7-16.9)
[2024-04-09 07:12] LABS: CALCIUM 7.7 mg/dL (8.5-10.1)
[2024-04-09 07:14] LABS: ANION GAP 14 mmol/L (4-13); CO2 23 mmol/L (21-32); GLUCOSE,RANDOM 119 mg/dL (74-106); MAGNESIUM 2.1 mg/dL (1.8-2.4)
[2024-04-09 07:17] LABS: PHOSPHOROUS 7.2 mg/dL (2.5-4.9); SGOT/AST 170 U/L (15-37); SGPT/ALT 98 U/L (13-61)
[2024-04-09 07:18] LABS: TOT PROT 5.3 g/dl (6.4-8.2)
[2024-04-09 07:20] LABS: ALK PHOS 62 U/L (45-117); BILIRUBIN,TOTAL 0.7 mg/dL (0.2-1)
[2024-04-09 07:40] LABS: ALBUMIN 2.1 g/dl (3.4-5.0)
[2024-04-09] MEDS: MIDAZOLAM HCL 5 MG/1 ML Single Dose Vial IVPUSH ONE (11:07)
[2024-04-09] MEDS: MIDAZOLAM IN 0.9 % SOD.CHLORID 100 MG/100 ML PLAST..BAG IVPB SCH (13:07)
[2024-04-09] MEDS: NOREPINEPHRINE 0.9 % NACL 8 MG/250 ML BAG IVPB SCH (13:07)
[2024-04-09] MEDS: VANCOMYCIN 1 GM PREMIX (F) 1 GM/200 ML BAG IVPB ONE (13:22)
[2024-04-09] MEDS ORDERED: SODIUM CHLORIDE 250 ML IV PRN (18:17)
[2024-04-09 20:37] LABS: HEMATOCRIT 25.8 % (35.4-49); HEMOGLOBIN 8.3 GM/dL (11.7-16.9); MCH 28.2 pg (25.7-33.7); MCHC 32.2 g/dl (32.0-35.9); MEAN CELL VOLUME 87.7 fl (80-96); MEAN PLT VOLUME 8.6 fl (7.5-11.1); PLATELET COUNT 340 10^3/uL (134-434); RBC 2.94 M/mm3 (4.00-5.60); RDW 17.3 % (11.9-15.9); WHITE BLOOD COUNT 16.3 K/mm3 (4.0-10.0)
[2024-04-10 07:37] LABS: HEMATOCRIT 24.5 % (35.4-49); MCH 28.7 pg (25.7-33.7); MCHC 32.6 g/dl (32.0-35.9); MEAN PLT VOLUME 8.8 fl (7.5-11.1); PLATELET COUNT 328 10^3/uL (134-434); RBC 2.78 M/mm3 (4.00-5.60); RDW 17.6 % (11.9-15.9)
[2024-04-10 07:58] LABS: CHLORIDE 104 mmol/L (98-107); POTASSIUM 4.1 mmol/L (3.5-5.1); SODIUM 139 mmol/L (136-145)
[2024-04-10 08:05] LABS: CALCIUM 7.3 mg/dL (8.5-10.1)
[2024-04-10 08:06] LABS: ALBUMIN 2.2 g/dl (3.4-5.0); ANION GAP 14 mmol/L (4-13); CO2 21 mmol/L (21-32); GLUCOSE,RANDOM 120 mg/dL (74-106); MAGNESIUM 2.1 mg/dL (1.8-2.4)
[2024-04-10 08:07] LABS: CREATININE 4.5 mg/dL (0.55-1.3); SGOT/AST 193 U/L (15-37); SGPT/ALT 121 U/L (13-61)
[2024-04-10 08:08] LABS: PHOSPHOROUS 8.1 mg/dL (2.5-4.9)
[2024-04-10 08:09] LABS: BILIRUBIN,TOTAL 0.9 mg/dL (0.2-1); TOT PROT 5.4 g/dl (6.4-8.2)
[2024-04-10 08:11] LABS: ALK PHOS 80 U/L (45-117)
[2024-04-10 08:18] LABS: BLOOD UREA NITROGEN 133.4 mg/dL (7-18)
[2024-04-10] MEDS: EPOETIN ALFA-EPBX 10,000 UNIT/ML VIAL SQ ONE (11:57)
[2024-04-10] MEDS: CEFTRIAXONE 1 G/50 ML PREMIX 50 ML IVPB SCH (12:42)
[2024-04-10 15:47] VITALS: BMI 20.9
[2024-04-11 07:27] LABS: HEMATOCRIT 25.1 % (35.4-49); HEMOGLOBIN 8.1 GM/dL (11.7-16.9); MCH 28.6 pg (25.7-33.7); MCHC 32.3 g/dl (32.0-35.9); MEAN CELL VOLUME 88.4 fl (80-96); MEAN PLT VOLUME 8.5 fl (7.5-11.1); PLATELET COUNT 286 10^3/uL (134-434); RBC 2.84 M/mm3 (4.00-5.60); RDW 16.7 % (11.9-15.9); WHITE BLOOD COUNT 19.6 K/mm3 (4.0-10.0)
[2024-04-11 07:48] LABS: POTASSIUM 3.4 mmol/L (3.5-5.1)
[2024-04-11 07:53] LABS: ALBUMIN 1.9 g/dl (3.4-5.0); CALCIUM 7.1 mg/dL (8.5-10.1)
[2024-04-11 07:54] LABS: MAGNESIUM 1.8 mg/dL (1.8-2.4)
[2024-04-11 07:56] LABS: CREATININE 3.6 mg/dL (0.55-1.3); PHOSPHOROUS 6.2 mg/dL (2.5-4.9)
[2024-04-11 07:57] LABS: BILIRUBIN,TOTAL 0.5 mg/dL (0.2-1); TOT PROT 5.1 g/dl (6.4-8.2)
[2024-04-11 08:08] LABS: BLOOD UREA NITROGEN 86.8 mg/dL (7-18)
[2024-04-11] MEDS: MAGNESIUM 1GM/D5W - 1 GM/100 ML IVPB IVPB ONE (08:40)
[2024-04-11] MEDS: AMINO ACIDS/PROTEIN HYDROLYS 30 ML LIQUID.PKT PO SCH (08:45)
[2024-04-11] MEDS: KCL 20 MEQ PREMIX BAG 20 MEQ/100 ML INFUS.BAG IVPB SCH (09:15)
[2024-04-11 09:19] LABS: PLATELET ESTIMATE ADEQUATE
[2024-04-11] MEDS: VITAMIN B COMP W-C 1 EA TABLET (NEPHRO-VITE) PO SCH (10:14)
[2024-04-11] MEDS: AMIODARONE HCL 200 MG TABLET PO SCH (21:52)
[2024-04-12] MEDS: FUROSEMIDE 40 MG/4 ML INJECTABLE VIAL IVPUSH ONE (06:41)
[2024-04-12 07:12] LABS: HEMATOCRIT 24.3 % (35.4-49); MCH 29.2 pg (25.7-33.7); MCHC 32.8 g/dl (32.0-35.9); MEAN CELL VOLUME 88.9 fl (80-96); MEAN PLT VOLUME 8.7 fl (7.5-11.1); PLATELET COUNT 267 10^3/uL (134-434); RBC 2.73 M/mm3 (4.00-5.60); RDW 16.5 % (11.9-15.9); WHITE BLOOD COUNT 19.7 K/mm3 (4.0-10.0)
[2024-04-12 07:19] LABS: POTASSIUM 3.8 mmol/L (3.5-5.1)
[2024-04-12 07:23] LABS: ALBUMIN 1.8 g/dl (3.4-5.0); BLOOD UREA NITROGEN 101.2 mg/dL (7-18); CALCIUM 7.3 mg/dL (8.5-10.1)
[2024-04-12 07:26] LABS: CREATININE 4.2 mg/dL (0.55-1.3)
[2024-04-12 07:28] LABS: BILIRUBIN,TOTAL 0.4 mg/dL (0.2-1)
[2024-04-12 09:09] LABS: ANISOCYTOSIS 0; MACROCYTOSIS 0; OVALOCYTE 1+
[2024-04-12] MEDS: VANCOMYCIN 1 GM PREMIX (F) 1 GM/200 ML BAG IVPB ONE (15:20)
[2024-04-13] MEDS ORDERED: SODIUM CHLORIDE 250 ML IV PRN (08:08)
[2024-04-13 08:13] LABS: HEMATOCRIT 23.7 % (35.4-49); HEMOGLOBIN 7.7 GM/dL (11.7-16.9); MCHC 32.6 g/dl (32.0-35.9); MEAN PLT VOLUME 8.5 fl (7.5-11.1); PLATELET COUNT 252 10^3/uL (134-434); RBC 2.67 M/mm3 (4.00-5.60); RDW 16.6 % (11.9-15.9); WHITE BLOOD COUNT 16.4 K/mm3 (4.0-10.0)
[2024-04-13 08:27] LABS: CHLORIDE 103 mmol/L (98-107); POTASSIUM 3.9 mmol/L (3.5-5.1); SODIUM 139 mmol/L (136-145)
[2024-04-13] MEDS ORDERED: NOREPINEPHRINE BITARTRATE 4 MG/4 ML ML IV ONE (08:28)
[2024-04-13 08:36] LABS: ALBUMIN 1.6 g/dl (3.4-5.0); ANION GAP 15 mmol/L (4-13); CALCIUM 7.7 mg/dL (8.5-10.1); CO2 21 mmol/L (21-32); GLUCOSE,RANDOM 82 mg/dL (74-106)
[2024-04-13 08:37] LABS: BLOOD UREA NITROGEN 112.6 mg/dL (7-18); MAGNESIUM 2.3 mg/dL (1.8-2.4)
[2024-04-13 08:40] LABS: CREATININE 4.7 mg/dL (0.55-1.3); SGOT/AST 91 U/L (15-37); SGPT/ALT 100 U/L (13-61)
[2024-04-13 08:41] LABS: BILIRUBIN,TOTAL 0.5 mg/dL (0.2-1); TOT PROT 4.8 g/dl (6.4-8.2)
[2024-04-13 08:42] LABS: ALK PHOS 74 U/L (45-117)
[2024-04-13] MEDS: NOREPINEPHRINE BITARTRATE 4,000 MCG in SODIUM CHLORIDE 496 ML IV SCH (08:52)
[2024-04-13] MEDS: EPOETIN ALFA-EPBX 10,000 UNIT/ML VIAL SQ ONE (09:01)
[2024-04-13 11:43] LABS: ANISOCYTOSIS 1+; MACROCYTOSIS 0; OVALOCYTE 1+
[2024-04-13] MEDS: APIXABAN 2.5 MG TABLET PO SCH (11:59)
[2024-04-13] MEDS ORDERED: METOPROLOL TARTRATE 25 MG TABLET (FP) NGT SCH (13:15)
[2024-04-13] MEDS: METOPROLOL TARTRATE 25 MG TABLET (FP) NGT ONE (13:17)
[2024-04-13] MEDS: AMINO ACIDS/PROTEIN HYDROLYS 30 ML LIQUID.PKT PO SCH (17:25)
[2024-04-14 07:29] LABS: HEMATOCRIT 25.2 % (35.4-49); HEMOGLOBIN 8.2 GM/dL (11.7-16.9); MCH 29.1 pg (25.7-33.7); MCHC 32.5 g/dl (32.0-35.9); MEAN CELL VOLUME 89.4 fl (80-96); MEAN PLT VOLUME 8.4 fl (7.5-11.1); PLATELET COUNT 246 10^3/uL (134-434); RBC 2.82 M/mm3 (4.00-5.60); RDW 16.6 % (11.9-15.9); WHITE BLOOD COUNT 15.3 K/mm3 (4.0-10.0)
[2024-04-14 07:31] LABS: POTASSIUM 3.4 mmol/L (3.5-5.1)
[2024-04-14 07:34] LABS: ALBUMIN 1.6 g/dl (3.4-5.0); CALCIUM 7.9 mg/dL (8.5-10.1)
[2024-04-14 07:38] LABS: CREATININE 3.2 mg/dL (0.55-1.3)
[2024-04-14 07:39] LABS: BILIRUBIN,TOTAL 0.4 mg/dL (0.2-1)
[2024-04-14 07:42] LABS: BLOOD UREA NITROGEN 70.3 mg/dL (7-18)
[2024-04-14] MEDS: POTASSIUM CHLORIDE ORAL LIQUID 20 MEQ/15 ML GT ONE (08:46)
[2024-04-14] MEDS: METOPROLOL TARTRATE 25 MG TABLET (FP) NGT SCH (09:17)
[2024-04-14 09:39] LABS: ANISOCYTOSIS 1+; MACROCYTOSIS 0; OVALOCYTE 1+
[2024-04-14] MEDS: FUROSEMIDE 40 MG/4 ML INJECTABLE VIAL IVPUSH ONE (10:30)
[2024-04-14] MEDS: MIDODRINE HCL 5 MG TABLET PO SCH (13:25)
[2024-04-14] MEDS ORDERED: SODIUM CHLORIDE 250 ML IV PRN (13:50)
[2024-04-15 08:17] LABS: HEMATOCRIT 25.3 % (35.4-49); HEMOGLOBIN 8.1 GM/dL (11.7-16.9); MCH 29.4 pg (25.7-33.7); MEAN CELL VOLUME 91.7 fl (80-96); MEAN PLT VOLUME 8.2 fl (7.5-11.1); PLATELET COUNT 267 10^3/uL (134-434); RBC 2.76 M/mm3 (4.00-5.60); RDW 16.7 % (11.9-15.9)
[2024-04-15 08:42] LABS: POTASSIUM 3.7 mmol/L (3.5-5.1)
[2024-04-15 08:46] LABS: BLOOD UREA NITROGEN 82.1 mg/dL (7-18)
[2024-04-15 08:47] LABS: ALBUMIN 1.6 g/dl (3.4-5.0); CALCIUM 7.7 mg/dL (8.5-10.1)
[2024-04-15 08:49] LABS: CREATININE 3.3 mg/dL (0.55-1.3)
[2024-04-15 08:50] LABS: PHOSPHOROUS 6.5 mg/dL (2.5-4.9)
[2024-04-15 08:51] LABS: BILIRUBIN,TOTAL 0.4 mg/dL (0.2-1)
[2024-04-15] MEDS ORDERED: ALBUMIN HUMAN 25% 12.5 GM/50 ML VIAL IV SCH (14:00)
[2024-04-15] MEDS: MIDODRINE HCL 5 MG TABLET PO SCH (14:00)
[2024-04-15] MEDS: EPOETIN ALFA-EPBX 10,000 UNIT/ML VIAL SQ ONE (14:50)
[2024-04-15] MEDS: VANCOMYCIN 1 GM PREMIX (F) 1 GM/200 ML BAG IVPB ONE (15:30)
[2024-04-16 07:44] LABS: HEMOGLOBIN 8.5 GM/dL (11.7-16.9); MCH 29.5 pg (25.7-33.7); MCHC 32.6 g/dl (32.0-35.9); MEAN CELL VOLUME 90.5 fl (80-96); MEAN PLT VOLUME 7.7 fl (7.5-11.1); PLATELET COUNT 274 10^3/uL (134-434); RBC 2.87 M/mm3 (4.00-5.60); RDW 16.7 % (11.9-15.9); WHITE BLOOD COUNT 16.6 K/mm3 (4.0-10.0)
[2024-04-16 07:57] LABS: POTASSIUM 3.5 mmol/L (3.5-5.1)
[2024-04-16 07:58] LABS: BLOOD UREA NITROGEN 57.8 mg/dL (7-18); CALCIUM 7.8 mg/dL (8.5-10.1)
[2024-04-16 07:59] LABS: MAGNESIUM 1.9 mg/dL (1.8-2.4)
[2024-04-16 08:02] LABS: CREATININE 2.2 mg/dL (0.55-1.3); PHOSPHOROUS 3.9 mg/dL (2.5-4.9)
[2024-04-16] MEDS: FUROSEMIDE 40 MG/4 ML INJECTABLE VIAL IVPUSH ONE (09:21)
[2024-04-16] MEDS: AMIODARONE HCL 200 MG TABLET NGT ONE (23:00)
[2024-04-16] MEDS: FENTANYL CITRATE/PF 50 MCG/ML VIAL IVPUSH ONE (23:19)
[2024-04-16] MEDS: MAGNESIUM SULFATE IN WATER 2 GM/50 ML IVPB IVPB ONE (23:55)
[2024-04-17 07:11] LABS: HEMATOCRIT 26.2 % (35.4-49); HEMOGLOBIN 8.3 GM/dL (11.7-16.9); MCH 29.1 pg (25.7-33.7); MCHC 31.7 g/dl (32.0-35.9); MEAN CELL VOLUME 91.8 fl (80-96); MEAN PLT VOLUME 7.7 fl (7.5-11.1); PLATELET COUNT 323 10^3/uL (134-434); RBC 2.86 M/mm3 (4.00-5.60); RDW 16.4 % (11.9-15.9); WHITE BLOOD COUNT 20.8 K/mm3 (4.0-10.0)
[2024-04-17] MEDS ORDERED: PIPERACILLIN/TAZOB 2.25 GM 2.25 GM in DEXTROSE 5%-WATER - 50 ML IVPB SCH (07:30)
[2024-04-17 07:47] LABS: POTASSIUM 3.5 mmol/L (3.5-5.1)
[2024-04-17 07:52] LABS: ALBUMIN 1.7 g/dl (3.4-5.0); BLOOD UREA NITROGEN 61.6 mg/dL (7-18); CALCIUM 7.8 mg/dL (8.5-10.1)
[2024-04-17 07:56] LABS: BILIRUBIN,TOTAL 0.4 mg/dL (0.2-1); CREATININE 2.5 mg/dL (0.55-1.3)
[2024-04-17] MEDS ORDERED: SODIUM CHLORIDE 250 ML IV PRN (08:02)
[2024-04-17 08:06] LABS: MAGNESIUM 2.1 mg/dL (1.8-2.4)
[2024-04-17] MEDS: AMIODARONE HCL 200 MG TABLET PO SCH (09:07)
[2024-04-17] MEDS ORDERED: ACETAMINOPHEN 1000 MG/100 ML BAG IVPB PRN (09:12)
[2024-04-17] MEDS: POTASSIUM CHLORIDE ORAL LIQUID 20 MEQ/15 ML GT ONE (09:20)
[2024-04-17] MEDS: EPOETIN ALFA-EPBX 10,000 UNIT/ML VIAL SQ ONE (10:36)
[2024-04-17] MEDS: PIPERACILLIN/TAZOB 2.25 GM 2.25 GM/50 ML BAG IVPB SCH (12:11)
[2024-04-17] MEDS: METOPROLOL TARTRATE 25 MG TABLET (FP) PO ONE (13:21)
[2024-04-17] MEDS: VANCOMYCIN 1 GM PREMIX (F) 1 GM/200 ML BAG IVPB ONE (17:05)
[2024-04-17] MEDS ORDERED: METOPROLOL TARTRATE 25 MG TABLET (FP) NGT SCH (20:00)
[2024-04-17] MEDS: METOPROLOL TARTRATE 25 MG TABLET (FP) NGT SCH (21:06)
[2024-04-18] MEDS ORDERED: NOREPINEPHRINE BITARTRATE 4 MG/4 ML ML IV ONE (05:22)
[2024-04-18 06:52] LABS: HEMATOCRIT 25.9 % (35.4-49); MCH 28.5 pg (25.7-33.7); MCHC 30.9 g/dl (32.0-35.9); MEAN CELL VOLUME 92.1 fl (80-96); MEAN PLT VOLUME 7.7 fl (7.5-11.1); PLATELET COUNT 258 10^3/uL (134-434); RBC 2.81 M/mm3 (4.00-5.60); RDW 16.7 % (11.9-15.9); WHITE BLOOD COUNT 19.9 K/mm3 (4.0-10.0)
[2024-04-18 07:04] LABS: POTASSIUM 3.5 mmol/L (3.5-5.1)
[2024-04-18 07:07] LABS: CALCIUM 7.7 mg/dL (8.5-10.1)
[2024-04-18 07:08] LABS: ALBUMIN 1.6 g/dl (3.4-5.0)
[2024-04-18 07:12] LABS: BILIRUBIN,TOTAL 0.4 mg/dL (0.2-1); TOT PROT 4.9 g/dl (6.4-8.2)
[2024-04-18] MEDS: FUROSEMIDE 40 MG/4 ML INJECTABLE VIAL IVPUSH ONE (09:49)
[2024-04-18] MEDS: POTASSIUM CHLORIDE ORAL LIQUID 20 MEQ/15 ML PO ONE (09:50)
[2024-04-18] MEDS: MIDODRINE HCL 5 MG TABLET PO SCH (09:50)
[2024-04-18 11:47] LABS: ARTERIAL BLD GAS O2 SATURATION 98.9 % (95-98); ARTERIAL BLOOD GAS BASE EXCESS 0.2 mmol/L (-2-2); ARTERIAL BLOOD GAS pH 7.494 (7.350-7.450)
[2024-04-18 11:48] LABS: ALLENS TEST POSITIVE
[2024-04-18 11:49] LABS: VENT MODE PSV; VENT RATE 12
[2024-04-19 07:08] LABS: BASO % 0.7 % (0-2.0); EOS % 0.6 % (0-4.5); HEMATOCRIT 23.8 % (35.4-49); HEMOGLOBIN 7.6 GM/dL (11.7-16.9); LYMPH % 4.9 % (8-40); MCH 29.3 pg (25.7-33.7); MEAN CELL VOLUME 91.6 fl (80-96); MEAN PLT VOLUME 7.7 fl (7.5-11.1); MONO % 5.8 % (3.8-10.2); PLATELET COUNT 254 10^3/uL (134-434); RBC 2.59 M/mm3 (4.00-5.60); RDW 16.4 % (11.9-15.9); WHITE BLOOD COUNT 17.1 K/mm3 (4.0-10.0)
[2024-04-19 07:22] LABS: POTASSIUM 3.9 mmol/L (3.5-5.1)
[2024-04-19 07:26] LABS: ALBUMIN 1.6 g/dl (3.4-5.0); BLOOD UREA NITROGEN 66.2 mg/dL (7-18); CALCIUM 7.6 mg/dL (8.5-10.1)
[2024-04-19 07:28] LABS: CREATININE 2.3 mg/dL (0.55-1.3)
[2024-04-19 07:29] LABS: PHOSPHOROUS 3.9 mg/dL (2.5-4.9)
[2024-04-19 07:30] LABS: BILIRUBIN,TOTAL 0.5 mg/dL (0.2-1); TOT PROT 5.1 g/dl (6.4-8.2)
[2024-04-19] MEDS: PIPERACILLIN/TAZOB 2.25 GM 2.25 GM/50 ML BAG IVPB SCH (09:04)
[2024-04-20 08:11] LABS: POTASSIUM 3.7 mmol/L (3.5-5.1)
[2024-04-20 08:15] LABS: BLOOD UREA NITROGEN 77.4 mg/dL (7-18)
[2024-04-20 08:16] LABS: MAGNESIUM 2.2 mg/dL (1.8-2.4)
[2024-04-20 08:17] LABS: ALBUMIN 1.7 g/dl (3.4-5.0)
[2024-04-20 08:18] LABS: CREATININE 2.5 mg/dL (0.55-1.3)
[2024-04-20 08:19] LABS: BASO % 0.5 % (0-2.0); BILIRUBIN,TOTAL 0.4 mg/dL (0.2-1); EOS % 0.6 % (0-4.5); HEMATOCRIT 24.4 % (35.4-49); HEMOGLOBIN 7.6 GM/dL (11.7-16.9); MCH 29.4 pg (25.7-33.7); MCHC 31.3 g/dl (32.0-35.9); MEAN CELL VOLUME 94.1 fl (80-96); MEAN PLT VOLUME 8.3 fl (7.5-11.1); MONO % 5.5 % (3.8-10.2); NEUT % 87.4 % (42.8-82.8); PHOSPHOROUS 4.6 mg/dL (2.5-4.9); PLATELET COUNT 259 10^3/uL (134-434); RDW 17.4 % (11.9-15.9); WHITE BLOOD COUNT 12.4 K/mm3 (4.0-10.0)
[2024-04-20 08:20] LABS: TOT PROT 5.3 g/dl (6.4-8.2)
[2024-04-20] MEDS: ALBUMIN HUMAN 25% 12.5 GM/50 ML VIAL IV SCH (11:23)
[2024-04-20] MEDS: FUROSEMIDE 40 MG/4 ML INJECTABLE VIAL IVPUSH ONE (12:45)
[2024-04-21] MEDS ORDERED: METOPROLOL TARTRATE 5 MG/5 ML VIAL IVPUSH PRN (08:54)
[2024-04-21] MEDS ORDERED: AMIODARONE HCL 200 MG TABLET NGT SCH (10:14)
[2024-04-21] MEDS ORDERED: APIXABAN 2.5 MG TABLET NGT SCH (10:14)
[2024-04-21] MEDS ORDERED: AMINO ACIDS/PROTEIN HYDROLYS 30 ML LIQUID.PKT NGT SCH (10:14)
[2024-04-21 10:50] LABS: HEMATOCRIT 23.7 % (35.4-49); HEMOGLOBIN 7.7 GM/dL (11.7-16.9); MCH 29.8 pg (25.7-33.7); MCHC 32.5 g/dl (32.0-35.9); MEAN CELL VOLUME 91.7 fl (80-96); MEAN PLT VOLUME 7.8 fl (7.5-11.1); PLATELET COUNT 259 10^3/uL (134-434); RBC 2.58 M/mm3 (4.00-5.60); RDW 17.2 % (11.9-15.9); WHITE BLOOD COUNT 10.4 K/mm3 (4.0-10.0)
[2024-04-21 11:19] LABS: POTASSIUM 3.8 mmol/L (3.5-5.1)
[2024-04-21 11:21] LABS: ALBUMIN 1.9 g/dl (3.4-5.0); BLOOD UREA NITROGEN 90.8 mg/dL (7-18); CALCIUM 8.2 mg/dL (8.5-10.1); MAGNESIUM 2.3 mg/dL (1.8-2.4)
[2024-04-21 11:25] LABS: CREATININE 2.6 mg/dL (0.55-1.3); PHOSPHOROUS 4.8 mg/dL (2.5-4.9)
[2024-04-21 11:26] LABS: BILIRUBIN,TOTAL 0.6 mg/dL (0.2-1); TOT PROT 5.3 g/dl (6.4-8.2)
[2024-04-21] MEDS: APIXABAN 2.5 MG TABLET NGT SCH (11:29)
[2024-04-21] MEDS: MIDODRINE HCL 5 MG TABLET NGT SCH ×2 (11:29→13:06)
[2024-04-21] MEDS: AMINO ACIDS/PROTEIN HYDROLYS 30 ML LIQUID.PKT NGT SCH (11:29)
[2024-04-21] MEDS: AMIODARONE HCL 200 MG TABLET NGT SCH (11:29)
[2024-04-21] MEDS: VITAMIN B COMP W-C 1 EA TABLET (NEPHRO-VITE) GT SCH (11:29)
[2024-04-22] MEDS: MORPHINE 100mg/NS INFUSION 100 MG/100 ML MG IVPB SCH (10:57)
[2024-04-22 11:26] LABS: POTASSIUM 3.9 mmol/L (3.5-5.1)
[2024-04-22 11:31] LABS: BLOOD UREA NITROGEN 98.2 mg/dL (7-18); CALCIUM 8.3 mg/dL (8.5-10.1)
[2024-04-22 11:35] LABS: BILIRUBIN,TOTAL 0.8 mg/dL (0.2-1); CREATININE 2.8 mg/dL (0.55-1.3); TOT PROT 5.8 g/dl (6.4-8.2)
[2024-04-22] MEDS ORDERED: PANTOPRAZOLE SODIUM 40 MG VIAL IVPUSH SCH (12:15)
[2024-04-22] MEDS: METOPROLOL TARTRATE 5 MG/5 ML VIAL IVPUSH ONE (12:20)
[2024-04-22] MEDS: METOPROLOL TARTRATE 50 MG TABLET (FP) NGT SCH (21:07)
[2024-04-22] MEDS ORDERED: METOPROLOL TARTRATE 50 MG TABLET (FP) PO SCH (22:00)
[2024-04-23] MEDS: ACETAMINOPHEN 1000 MG/100 ML BAG IVPB ONE (01:06)
[2024-04-23 02:10] VITALS: BP 72/50; RESP 20; TEMP 100.5
[2024-04-23 02:51] VITALS: PULSE 98
[2024-04-23] MEDS ORDERED: PANTOPRAZOLE SODIUM 40 MG VIAL IVPUSH SCH (10:00)
== END 2024-04-23 05:35 | disposition expired | DRG 870 ==
LOC: JER 13:37 → OBSVTOIN 18:11 → JERBED 18:11 → J4W 22:19 → JICU 04-07 15:36
PROVIDERS: ADMIT Internal Medicine; ATTEND Internal Medicine
PROC: 0BH17EZ Insertion of Endotracheal Airway into Trachea, Via Natural or Artificial Opening (ICD-10-PCS; principal; 2024-04-08)
PROC: 5A1955Z Respiratory Ventilation, Greater than 96 Consecutive Hours (ICD-10-PCS; 2024-04-08)
PROC: 05HM33Z Insertion of Infusion Device into Right Internal Jugular Vein, Percutaneous Approach (ICD-10-PCS; 2024-04-08)
PROC: B543ZZA Ultrasonography of Right Jugular Veins, Guidance (ICD-10-PCS; 2024-04-08)
DX: A41.89 Other specified sepsis (principal); R65.21 Severe sepsis with septic shock; J96.01 Acute respiratory failure with hypoxia; J69.0 Pneumonitis due to inhalation of food and vomit; I21.4 Non-ST elevation (NSTEMI) myocardial infarction; I50.23 Acute on chronic systolic (congestive) heart failure; N17.9 Acute kidney failure, unspecified; E87.0 Hyperosmolality and hypernatremia; I50.32 Chronic diastolic (congestive) heart failure; N39.0 Urinary tract infection, site not specified; E87.20 Acidosis, unspecified; J94.2 Hemothorax; R64 Cachexia; J98.11 Atelectasis; T17.890A Other foreign object in other parts of respiratory tract causing asphyxiation, initial encounter; R00.0 Tachycardia, unspecified; D72.829 Elevated white blood cell count, unspecified; R33.9 Retention of urine, unspecified; E87.5 Hyperkalemia; L89.152 Pressure ulcer of sacral region, stage 2; I25.10 Atherosclerotic heart disease of native coronary artery without angina pectoris; F03.90 Unspecified dementia, unspecified severity, without behavioral disturbance, psychotic disturbance, mood disturbance, and anxiety; I35.0 Nonrheumatic aortic (valve) stenosis; K40.20 Bilateral inguinal hernia, without obstruction or gangrene, not specified as recurrent; R29.6 Repeated falls; R45.1 Restlessness and agitation; I48.0 Paroxysmal atrial fibrillation; E88.09 Other disorders of plasma-protein metabolism, not elsewhere classified; B95.2 Enterococcus as the cause of diseases classified elsewhere; Z86.73 Personal history of transient ischemic attack (TIA), and cerebral infarction without residual deficits
CPT/HCPCS: 0241U-QW; 31500; 36415; 36430; 36600; 71045-TC-FY; 76775-TC; 80048; 80053; 81003; 82728; 82803; 82962; 83540; 83550; 83605; 83735; 84100; 84484; 85025; 85027; 85045; 85610; 85730; 86704; 86803; 86850; 86900; 86901; 86922; 87040; 87070; 87086; 87186; 87205; 87340; 87481; 87517; 87804; 93005; 93010; 93306-TC; 94002; 94640; 94660; 99285-25; G0480; J0131; J0282; J1644; P9047; P9058; Q5106